=== PATIENT | male | born 1975 | race Caucasian/White ===

== ENCOUNTER 2023-04-03 09:55 | Outpatient (REF) | payer MEDICARE, MEDICAID, SELFPAY ==
--- NOTE | ~2023-04-03 | MR_ITS ---
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 COMPARISON: No relevant prior imaging. TECHNIQUE: Multiplanar MR imaging of the brain was performed without contrast. FINDINGS: There is asymmetric loss of parenchymal volume loss and the medial surface of the left cerebral hemisphere at the parieto-occipital junction with associated gliotic changes within the subcortical white matter. There also appears increased signal intensity on T2 FLAIR imaging within the left hippocampus and left amygdala. Mild asymmetric widening of the left sylvian fissure. Otherwise no intracranial mass effect or hydrocephalus. Midline structures including the cervicomedullary junction are normal. No acute bone marrow signal changes. There is no acute territorial infarct. No pathological magnetic susceptibility artifact. Intracranial vascular flow voids are grossly maintained. No mastoid middle ear effusion. Mild to moderate paranasal sinus disease primarily affecting the ethmoid air cells and axillary sinuses. Globes and orbits are symmetric. 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 These findings may be secondary to an old cortical injury in the setting of old trauma.
== END 2023-04-03 09:56 | disposition home or self-care (01) ==
LOC: HO.MRI 09:55
PROVIDERS: Visit Provider Psychiatry & Neurology Neurology
DX: G93.49 Other encephalopathy (principal)
CPT/HCPCS: 70551